=== PATIENT | male | born 1965 | race African-American/Black ===

== ENCOUNTER 2020-10-24 16:21 | Emergency (ER) | payer OTHER ==
[~2020-10-24] VITALS: Ht 172.7 cm; Wt 71.2 kg
[2020-10-24 17:50] LABS: PLATELET COUNT 339 K/uL (142-355)
[2020-10-24] MEDS ORDERED: METFORMIN HYDR850 MG PO (18:15)
[2020-10-24] MEDS ORDERED: GLIP10TA55 PO (18:16)
[2020-10-24] MEDS ORDERED: NOVOLIN N100 UNIT/2 SC (18:26)
[2020-10-24 18:33] LABS: POTASSIUM 5.4 mmol/L (3.6-5.2)
[2020-10-24 20:28] LABS: POTASSIUM 4.4 mmol/L (3.6-5.2)
[2020-10-24 21:15] VITALS: BP 124/83; TEMP 98.1
== END 2020-10-24 21:15 | disposition short-term general hospital (02) ==
LOC: ED 16:21 → EDBD 16:21 → ED 21:15
PROVIDERS: Emergency Medicine Emergency Medical Services
DX: I96 Gangrene, not elsewhere classified (principal); E11.65 Type 2 diabetes mellitus with hyperglycemia; Z79.4 Long term (current) use of insulin
CPT/HCPCS: 36415; 80048; 80053; 81002; 82962; 83605; 85027; 85610; 87040; 96360; 96365; 96375; 99284; J1815; J3370